=== PATIENT | male | born 1960 | race Hispanic/Latino ===

== ENCOUNTER 2016-07-02 11:41 | Emergency (ER) | payer OTHER ==
[~2016-07-02] VITALS: Ht 160 cm; Wt 77.1 kg
[~2016-07-02 11:41] MED LIST: ALBUTEROL0.09 MG/A1 INH; AMOXICILLIN875 MG PO; AUGMENTIN 875 M1 TAB PO; BACTRIM DS 8001 TAB PO; FLEXERIL10 MG PO; IBUPROFEN800 MG PO; KEFLEX500 MG PO; LOTRIMIN CR1 %/45 GM TOP; MOTRIN600 MG PO; MOTRIN800 MG PO; NAPROSYN 500 M500 MG PO; NORCO 325 MG-51 TAB PO; NORFLEX100 MG PO; ROBITUSSIN W/CO10 ML PO; TESSALON PERLE100 MG PO; TRAMADOL50 MG PO; VOLTAREN75 MG PO; ZITHROMAX Z-PA250 M1 PO
--- NOTE | 2016-07-02 11:53 | ED CARDIAC/CP/PALPITATIONS ---
History of Present Illness General Chief Complaint: Chest Pain Stated Complaint: C/P Source: patient, old records Exam Limitations: no limitations Vital Signs & Intake/Output Vital Signs & Intake/Output Vital Signs Date Time Temp Pulse Resp B/P Pulse O2 O2 Flow FiO2 Ox Delivery Rate 07/02 1604 96.8 54 20 102/76 98 Room Air 07/02 1414 97.4 56 18 113/73 99 Room Air 07/02 1224 98 Room Air 07/02 1152 98.1 66 20 112/75 98 Room Air Allergies Coded Allergies: NO KNOWN ALLERGIES (07/02/16) Reconcile Medications No Known Home Medications Triage Nurses Notes Reviewed? yes Onset: Abrupt Duration: waxing and waning Timing: multiple episodes today Quality/Severity: moderate, sharp Location: central Activities at Onset: none Aspirin Today: no aspirin today Associated Symptoms: anxiety, dyspnea HPI: This is a 56 year old male who presents to the ER with chest pain that started yesterday. Pain is moderate to severe in intensity when it starts. Pain free at this time. No sweating but some associated shortness of breath. No history of previous NH or CAD. Past History Travel History Traveled to [place] past 21 day No Medical History Any Pertinent Medical History? 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 Yes Review of Systems Review of Systems Constitutional: Denies: chills, fever. EENTM: Reports: no symptoms. Respiratory: Reports: short of breath. Denies: cough, sputum production. Cardiovascular: Reports: chest pain. Denies: palpitations. GI: Denies: abdominal pain, nausea, vomiting. Genitourinary: Reports: no symptoms. Musculoskeletal: Reports: no symptoms. Skin: Reports: no symptoms. Neurological/Psychological: Reports: no symptoms. Hematologic/Endocrine: Denies: bruising, bleeding, polyuria, polydipsia. Immunologic/Allergic: Denies: splenectomy. All Other Systems: Reviewed and Negative Physical Exam Physical Exam General Appearance: well developed/nourished, alert, awake, anxious, mild distress Head: atraumatic, normal appearance Eyes: Bilateral: normal appearance, PERRL, pale conjunctivae. Ears, Nose, Throat: normal pharynx, normal ENT inspection, hearing grossly normal Neck: normal inspection, supple, full range of motion Respiratory: normal breath sounds, chest non-tender, no respiratory distress Cardiovascular: regular rate/rhythm Peripheral Pulses: 2+ radial (R), 2+ radial (L) Gastrointestinal: normal bowel sounds, soft, non-tender Extremities: normal inspection, normal capillary refill, normal range of motion, no edema Neurologic/Psych: no motor/sensory deficits, awake, alert, oriented x 3 Skin: intact, normal color, warm/dry Core Measures ACS in differential dx? Yes ASA ordered for poss ACS? Yes-ordered Severe Sepsis Present: No Septic Shock Present: No Progress Differential Diagnosis: AMI, aortic dissection, atrial fibrillation, musculoskeletal pain, myocarditis, pancreatitis, pericarditis, pneumonia, pneumothorax, pulmonary embolism, PUD/GERD Plan of Care: Orders Procedure Date/time Status Heart Healthy Diet 07/02 D Active TROPONIN LEVEL 07/02 1600 Complete EKG 07/02 1600 Active Telemetry/Parachute Marker 07/02 1208 Active TROPONIN LEVEL 07/02 1208 Complete COMPREHENSIVE METABOLIC PANEL 07/02 1208 Complete CBC WITHOUT DIFFERENTIAL 07/02 1208 Complete EKG 07/02 1143 Active Laboratory Tests 07/02/16 1555: Troponin I < 0.01 07/02/16 1220: Anion Gap 13, Estimated GFR > 60, BUN/Creatinine Ratio 17.8, Glucose 87, Calcium 9.3, Total Bilirubin 0.8, AST 20, ALT 31, Alkaline Phosphatase 70, Troponin I < 0.01, Total Protein 7.2, Albumin 4.3, Globulin 2.9, Albumin/Globulin Ratio 1.5, CBC w Diff NO MAN DIFF REQ, RBC 4.47 L, MCV 88.8, MCH 30.1, RDW 14.0, MPV 7.0 L, Gran % 53.5, Lymphocytes % 35.5, Monocytes % 8.2, Eosinophils % 2.2, Basophils % 0.6, Absolute Granulocytes 2.5, Absolute Lymphocytes 1.7, Absolute Monocytes 0.4, Absolute Eosinophils 0.1, Absolute Basophils 0, PUBS MCHC 33.9 07/02/16 1210: Lipase Cancelled Diagnostic Imaging: Viewed by Me: Radiology Read. Discussed w/RAD: Radiology Read. Initial ED EKG: NSR, ST ELEVATION/EARLY REPOLARIZATION PATTERN Prior EKG: unchanged Rhythm Strip: normal sinus rhythm Departure Departure Time of Disposition: 1710 Disposition: HOME OR SELF CARE Condition: Stable Clinical Impression Primary Impression: Chest pain Referrals: ARVIND MALAGON APRN (PCP/Family) CAITY BRODERICK,SUSSY Burnette Additional Instructions: Follow-up with your doctor in the office and with a therapeutic specialist listed. Return to the ER for any changing or worsening symptoms. Departure Forms: Customer Survey General Discharge Information Prescriptions: Current Visit Scripts No Known Home Medications Critical Care Note Critical Care Note Critical Care Time: non-applicable
[2016-07-02 12:32] LABS: ABSOLUTE BASOPHIL COUNT 0 /CUMM (0.0-0.2); ABSOLUTE EOSINOPHIL COUNT 0.1 /CUMM (0.0-0.7); ABSOLUTE GRANULOCYTE CT 2.5 /CUMM (1.4-6.5); ABSOLUTE LYMPH COUNT 1.7 /CUMM (1.2-3.4); ABSOLUTE MONOCYTE COUNT 0.4 /CUMM (0.10-0.60); BASOPHIL % 0.6 % (0.0-2.0); EOSINOPHIL % 2.2 % (0-5); GRANULOCYTE % 53.5 % (42.2-75.2); HEMATOCRIT 39.7 % (42-52); MEAN CORPUSCULAR HGB 30.1 PG (27.0-31.0); MEAN CORPUSCULAR HGB CONC 33.9 G/DL (33.0-37.0); MEAN CORPUSCULAR VOLUME 88.8 FL (80.0-94.0); PLATELET COUNT 234 /CUMM (130-400); RED BLOOD CELL CT 4.47 /CUMM (4.70-6.10); WHITE BLOOD CELL COUNT 4.7 /CUMM (4.8-10.8)
--- NOTE | 2016-07-02 13:34 | RADIOLOGY REPORT ---
EXAMINATION: XR CHEST CLINICAL INFORMATION: Chest pain. COMPARISON: 04/11/2015 TECHNIQUE: PA and lateral views of the chest were obtained. FINDINGS: The cardiomediastinal silhouette is stable. Peribronchial thickening, most prominent in the perihilar region is overall similar to the prior exam. There is no focal consolidation, pleural effusion or pneumothorax. Osseous structures are unremarkable. IMPRESSION: No acute cardiopulmonary process. Similar peribronchial thickening may be related to chronic bronchitis.
[2016-07-02 17:27] VITALS: BP 110/70
== END 2016-07-02 17:28 ==
LOC: ERH 11:41
PROVIDERS: Emergency Medicine
DX: R07.9 Chest pain, unspecified (principal)
CPT/HCPCS: 93005; 93010

== ENCOUNTER 2016-09-06 10:18 | Emergency (ER) | payer OTHER ==
[~2016-09-06] VITALS: Ht 165.1 cm; Wt 72.6 kg
--- NOTE | 2016-09-06 11:15 | ED GI/GU/ABDOMINAL COMPLAINT ---
History of Present Illness General Chief Complaint: General Adult Stated Complaint: PT STATES "I SEE BLD WHEN I WIPE' Source: patient Exam Limitations: no limitations Vital Signs & Intake/Output Vital Signs & Intake/Output Vital Signs Date Time Temp Pulse Resp B/P Pulse O2 O2 Flow FiO2 Ox Delivery Rate 09/06 1247 98.3 69 16 124/74 100 Room Air 09/06 1244 99 Room Air 09/06 1022 97.1 66 18 126/78 98 Room Air Allergies Coded Allergies: NO KNOWN ALLERGIES (07/02/16) Reconcile Medications Ondansetron HCl (Zofran) 4 MG TABLET 1 TAB PO Q6-8P PRN NAUSEA Triage Note: PT STATES THAT HE HAS HISTORY OF HEMROIDS AND CHRONIC BACK PROBLEMS, PT WAS SUPOSSED TO HAE PROCEDURE AT [facility] YESTERDAY FOR HIS BACK , BUT DID NOT GO DUE TO HE NOTED A SMALL AMOUNT OF BLOOD ON TOILET PAPER AFTER HE HAD A BM YESTERDAY. PT COMPLAINS OF FEELING NERVOUS Triage Nurses Notes Reviewed? yes Onset: Abrupt Duration: constant Timing: recent history Quality/Severity: moderate Severity Numbers: 5 Location: periumbilical Activities at Onset: none HPI: Patient is a 64-year-old male with a past medical history of chronic back pain states that yesterday he was at [facility] to have a procedure on his back however patient cannot specify exactly what this procedure was in which he identified to the staff that he had bright red blood after wiping after bowel movements which she was advised to present to the primary care doctor for further evaluation treatment and the procedure was not performed. Patient states that he tried to be evaluated by his primary care doctor however no point and was made in which patient presented the emergency room per the PCPs advice. Patient states that he had a colonoscopy performed remotely however he is unsure of specific findings. Patient does complain of a 2 day history as well as denies back pain periumbilical pain and mild nausea however patient can tolerate by mouth. Patient does state that he has had intermittent episodes of nausea as well the last 2 days. Denies any significant alcohol use however per pharmacology reconciliation he has been prescribed meloxicam recently He also admits to having difficulty and excessive force while moving his bowels Past History Travel History Traveled to [place] past 21 day No Medical History Any Pertinent Medical History? 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 No Review of Systems Review of Systems Constitutional: Reports: no symptoms. EENTM: Reports: no symptoms. Respiratory: Reports: no symptoms. Cardiovascular: Reports: no symptoms. GI: Reports: see HPI, abdominal pain. Genitourinary: Reports: no symptoms. Musculoskeletal: Reports: no symptoms. Skin: Reports: no symptoms. Neurological/Psychological: Reports: no symptoms. Hematologic/Endocrine: Reports: no symptoms. Immunologic/Allergic: Reports: no symptoms. All Other Systems: Reviewed and Negative Physical Exam Physical Exam General Appearance: no apparent distress, alert Gastrointestinal: normal bowel sounds, soft, GENERALIZED POINT TENDERNESS NOTED Rectal: RECTAL TONE INTACT SCANT BRIGHT RED BLOOD NOTED AFTER DIGITAL RECTAL EXAM nO SURROUNDING PERIRECTAL ABSCESS SWELLING OR TENDERNESS OR ERYTHEMA Comments: Well-developed well-nourished person in no acute distress HEENT: Normal EENT exam, extraocular motion intact, no nystagmus. Pupils equally round and reactive to light and accommodation. Nose is atraumatic. External auditory canal and Tympanic membranes clear. Pharynx normal. No swelling or edema. Neck: Supple, no lymphadenopathy, normal range of motion without pain or tenderness Back: Normal inspection generalized point tenderness noted Cardiovascular: Regular rate and rhythms no murmurs rubs or gallops, normal JVP Respiratory: Chest nontender. No respiratory distress.breath sounds clear to auscultation bilaterally Extremity: No edema, no calf tenderness to palpation, normal and equal pulses. Neuro: Alert oriented x3, motor sensory normal, cranial nerves II through XII grossly intact. Skin: No appreciable rash on exposed skin, skin is warm and dry. Psych: Mood and affect is normal, memory and judgment is normal. Core Measures ACS in differential dx? No Severe Sepsis Present: No Septic Shock Present: No Progress Differential Diagnosis: AAA, AMI, appendicitis, biliary colic, bowel obstruction , colon cancer, cholecystitis, diverticulitis, epididymitis, esophageal varices, gastritis, hepatitis, hernia, hemorrhoids, ischemic bowel, inflamm bowel dis, Irene-Genie tear, orchitis, pancreatitis, prostatitis, peptic ulcer, PUD/GERD, perforated viscous, pyelonephritis, SBO, STD, testicular torsion, ureterolithiasis, urinary retention, urethritis, UTI/pyelo Plan of Care: Orders Procedure Date/time Status PARTIAL THROMBOPLASTIN TIME 09/06 111 Complete PROTHROMBIN TIME 09/06 111 Complete LIPASE 09/06 111 Complete COMPREHENSIVE METABOLIC PANEL 09/06 111 Complete CBC WITHOUT DIFFERENTIAL 09/06 1116 Complete AMYLASE 09/06 111 Complete Laboratory Tests 09/06/16 1135: Anion Gap 9, Estimated GFR > 60, BUN/Creatinine Ratio 20.0, Glucose 82, Calcium 9.5, Total Bilirubin 1.2, AST 20, ALT 29, Alkaline Phosphatase 73, Total Protein 6.9, Albumin 4.1, Globulin 2.8, Albumin/Globulin Ratio 1.5, Amylase 37, Lipase 35, PT 11.8, INR 1.13, APTT 41 H, CBC w Diff NO MAN DIFF REQ, RBC 4.31 L, MCV 89.4, MCH 29.9, RDW 13.9, MPV 7.0 L, Gran % 49.3, Lymphocytes % 38.7, Monocytes % 8.3, Eosinophils % 2.9, Basophils % 0.8, Absolute Granulocytes 2.1, Absolute Lymphocytes 1.6, Absolute Monocytes 0.4, Absolute Eosinophils 0.1, Absolute Basophils 0, PUBS MCHC 33.4 Patient currently is resting comfortably on his bed no active bleeding noted at this time. Normotensive. Afebrile Patient had unremarkable blood work no signs of anemia no signs of acute blood loss no active bleeding unremarkable CT scan Nursing staff state that patient was reevaluated and states that he "just wants to take a nap" Patient was strongly advised to follow up with GI Patient was able tolerate by mouth on discharge (JANETH MANE,MARTINEZ) Diagnostic Imaging: Viewed by Me: CT Scan. Radiology Impression: no acute abnormality, no fracture Initial ED EKG: none Comments: PATIENT: ANGELIQUE ECHEVERRIA PRESENT AGE: 56 PATIENT ACCOUNT NO: [id number] : 58 LOCATION: [facility] ORDERING PHYSICIAN: MARTINEZ MANE SERVICE DATE: 09/06/16 EXAM TYPE: CAT - CT ABD & PELVIS W/O IV CONTRAS EXAMINATION: CT ABDOMEN AND PELVIS WITHOUT CONTRAST CLINICAL INFORMATION: Abdomen pain. Rectal bleeding COMPARISON: None TECHNIQUE: Multidetector volumetric imaging was performed from the superior aspect of the liver through the pubic symphysis. Sagittal and coronal reformatted images were obtained on the technologist's workstation. DLP: 339 mGy-cm FINDINGS: LUNG BASES: No suspicious abnormality. There are some scattered subpleural reticular opacities in the dependent lung bases. This could represent some atelectasis or fibrosis. LIVER, GALLBLADDER, AND BILIARY TREE: The liver contour is smooth. The liver is not enlarged. There is no suspicious focal liver lesion demonstrated on this nonenhanced exam. There is no definite calcified gallstone. There is no biliary dilation. PANCREAS: No suspicious abnormality SPLEEN: The spleen is not enlarged. No focal abnormality ADRENAL GLANDS: Within normal limits KIDNEYS AND URETERS: There is no renal calculus. There is no dilation of the urinary collecting system on either side. There is no renal mass. BLADDER: The bladder is not well-distended. No focal abnormality. GASTROINTESTINAL TRACT: There are some distal colonic diverticula. There is no localized pericolonic stranding. The appendix is normal. There is no small bowel dilation. No suspicious abnormality in the stomach. ABDOMINAL WALL: No significant hernia is appreciated. LYMPH NODES: There are no enlarged abdominal or pelvic lymph nodes. There is no free intraperitoneal fluid. VASCULAR: There is no abdominal aortic aneurysm. There is no obvious upper abdominal varices. PELVIC VISCERA: No suspicious abnormality OSSEOUS STRUCTURES: No suspicious focal lesion. There is irregularity of the endplates in the lower spine with vacuum phenomena and osteophyte formation. This may be degenerative. IMPRESSION: No acute abnormality. No etiology for rectal bleeding demonstrated No convincing evidence of portal hypertension or chronic liver disease The study was performed without IV contrast Departure Departure Disposition: HOME OR SELF CARE Condition: Stable Clinical Impression Primary Impression: Rectal bleed Secondary Impressions: Abdominal pain, Chronic low back pain Referrals: LOTUS BRODERICK,ARVIND GROSS APRN (PCP/Family) Additional Instructions: As discussed continue home medications as directed. Begin [id number] stool softener DOCULSATE for improvement of YOUR bowel movements. If symptoms worsen return to emergency room. On Friday please follow up and establish gastrin draw this Dr. GAUTAM for further evaluation treatment. Follow-up with your surgeon and your primary care doctor on Friday Begin the prescription of Zofran for future nausea PRESCRIPTION IS WAITING AT [facility] Departure Forms: Customer Survey General Discharge Information Prescriptions: Current Visit Scripts Ondansetron HCl (Zofran) 1 TAB PO Q6-8P PRN NAUSEA #15 TAB
[2016-09-06 11:49] LABS: ABSOLUTE BASOPHIL COUNT 0 /CUMM (0.0-0.2); ABSOLUTE EOSINOPHIL COUNT 0.1 /CUMM (0.0-0.7); ABSOLUTE GRANULOCYTE CT 2.1 /CUMM (1.4-6.5); ABSOLUTE LYMPH COUNT 1.6 /CUMM (1.2-3.4); ABSOLUTE MONOCYTE COUNT 0.4 /CUMM (0.10-0.60); BASOPHIL % 0.8 % (0.0-2.0); EOSINOPHIL % 2.9 % (0-5); GRANULOCYTE % 49.3 % (42.2-75.2); HEMATOCRIT 38.6 % (42-52); MEAN CORPUSCULAR HGB 29.9 PG (27.0-31.0); MEAN CORPUSCULAR HGB CONC 33.4 G/DL (33.0-37.0); MEAN CORPUSCULAR VOLUME 89.4 FL (80.0-94.0); PLATELET COUNT 211 /CUMM (130-400); RBC DISTRIBUTION WIDTH 13.9 % (11.5-14.5); RED BLOOD CELL CT 4.31 /CUMM (4.70-6.10); WHITE BLOOD CELL COUNT 4.3 /CUMM (4.8-10.8)
--- NOTE | 2016-09-06 11:51 | CT SCAN REPORT ---
EXAMINATION: CT ABDOMEN AND PELVIS WITHOUT CONTRAST CLINICAL INFORMATION: Abdomen pain. Rectal bleeding COMPARISON: None TECHNIQUE: Multidetector volumetric imaging was performed from the superior aspect of the liver through the pubic symphysis. Sagittal and coronal reformatted images were obtained on the technologist's workstation. DLP: 339 mGy-cm FINDINGS: LUNG BASES: No suspicious abnormality. There are some scattered subpleural reticular opacities in the dependent lung bases. This could represent some atelectasis or fibrosis. LIVER, GALLBLADDER, AND BILIARY TREE: The liver contour is smooth. The liver is not enlarged. There is no suspicious focal liver lesion demonstrated on this nonenhanced exam. There is no definite calcified gallstone. There is no biliary dilation. PANCREAS: No suspicious abnormality SPLEEN: The spleen is not enlarged. No focal abnormality ADRENAL GLANDS: Within normal limits KIDNEYS AND URETERS: There is no renal calculus. There is no dilation of the urinary collecting system on either side. There is no renal mass. BLADDER: The bladder is not well-distended. No focal abnormality. GASTROINTESTINAL TRACT: There are some distal colonic diverticula. There is no localized pericolonic stranding. The appendix is normal. There is no small bowel dilation. No suspicious abnormality in the stomach. ABDOMINAL WALL: No significant hernia is appreciated. LYMPH NODES: There are no enlarged abdominal or pelvic lymph nodes. There is no free intraperitoneal fluid. VASCULAR: There is no abdominal aortic aneurysm. There is no obvious upper abdominal varices. PELVIC VISCERA: No suspicious abnormality OSSEOUS STRUCTURES: No suspicious focal lesion. There is irregularity of the endplates in the lower spine with vacuum phenomena and osteophyte formation. This may be degenerative. IMPRESSION: No acute abnormality. No etiology for rectal bleeding demonstrated No convincing evidence of portal hypertension or chronic liver disease The study was performed without IV contrast
[2016-09-06] MEDS ORDERED: ZOFRAN4 M2 PO (12:01)
[2016-09-06 12:05] LABS: PT 11.8 SEC (9.4-12.5); PTT 41 SEC (25-37)
[2016-09-06 12:47] VITALS: BP 124/74
== END 2016-09-06 12:59 ==
LOC: ERH 10:18
PROVIDERS: Physician Assistant
DX: K62.5 Hemorrhage of anus and rectum (principal); G89.29 Other chronic pain; M54.5 Low back pain; R10.84 Generalized abdominal pain
CPT/HCPCS: 74176; J3101

== ENCOUNTER 2017-09-08 16:00 | Emergency (ER) | payer OTHER ==
[~2017-09-08] VITALS: Ht 165.1 cm; Wt 75.3 kg
[~2017-09-08 16:00] MED LIST changes: +KEFLEX500 M1 PO; +ZOFRAN4 M2 PO
[2017-09-08 17:59] VITALS: BP 112/78
--- NOTE | 2017-09-08 18:46 | ED ANIMAL BITE/WOUND CHECK ---
History of Present Illness General Chief Complaint: Suture Removal/Wound Recheck Stated Complaint: WOUND CHECK Source: patient, old records Exam Limitations: no limitations Vital Signs & Intake/Output Vital Signs & Intake/Output Vital Signs Date Time Temp Pulse Resp B/P B/P Pulse O2 O2 Flow FiO2 Mean Ox Delivery Rate 09/08 1759 97.5 83 18 112/78 97 Room Air 09/08 1618 98.4 80 20 109/73 98 Room Air ED Intake and Output 09/09 0000 09/08 1200 Intake Total Output Total Balance Patient 166 lb Weight Weight Reported by Patient Measurement Method Allergies Coded Allergies: No Known Allergies (09/08/17) Reconcile Medications Cephalexin (Keflex) 500 MG CAPSULE 1 CAP PO TID INFECTION Triage Note: TRIAGE: PT TO ER FOR WOUND RECHECK. HAS WOUND TO L INDEX FINGER S/P INJURY WITH BLEACH ON FRIDAY OR FRIDAY AND WAS SEEN HERE ON FRIDAY FOR SAME. STATES "SHE POPPED IT, SQUEEZED IT OUT, PUT OINTMENT AND A BIG BANDAID". WAS TOLD TO RETURN TODAY FOR RECHECK. HAS DRESSING IN PLACE AT TRIAGE, WOUND NOT VISUALIZED. Triage Nurses Notes Reviewed? yes Onset: Abrupt Duration: day(s): (5), better, continues in ED Timing: single episode today Injury Environment: home Is Injury an Animal Bite? No Severity: mild, moderate Severity Numbers: 5 No Modifying Factors: none HPI: 57-year-old male past medical history of chronic back pain, anxiety presents for evaluation of a wound recheck. Patient was seen here several days ago for an infection to his left index finger. Patient sustained a wound while cleaning a bathroom. He was started on antibiotics. He had a abscess drained several days ago. He states that the swelling and redness has improved significantly seen playing with the pain. He's been changing the dressing daily and take the antibiotics as directed. No numbness or tingling or fever. He does report some purulent discharge. (Pedro Montalvo) Past History Travel History Traveled to [place] past 21 day No Medical History Any Pertinent Medical History? 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 No (Pedro Montalvo) Review of Systems Review of Systems Constitutional: Reports: no symptoms. EENTM: Reports: no symptoms. Respiratory: Reports: no symptoms. Cardiovascular: Reports: no symptoms. GI: Reports: no symptoms. Genitourinary: Reports: no symptoms. Musculoskeletal: Reports: no symptoms. Skin: Reports: see HPI. Neurological/Psychological: Reports: no symptoms. Hematologic/Endocrine: Reports: no symptoms. Immunologic/Allergic: Reports: no symptoms. All Other Systems: Reviewed and Negative (Pedro Montalvo) Physical Exam Physical Exam General Appearance: well developed/nourished, no apparent distress, alert, awake Head: atraumatic, normal appearance Eyes: Bilateral: normal appearance, EOMI. Ears, Nose, Throat: hearing grossly normal Neck: normal inspection Respiratory: no respiratory distress Peripheral Pulses: 2+ radial (R), 2+ radial (L) Back: normal inspection, normal range of motion Extremities: LEFT INDEX FINGER. tHERE IS A AREA OF ERYTHEMA AND SWELLING ON THE PROXIMAL SEGMENT OF THE DORSAL SIDE. tHERE IS SOME PURULENT DISCHARGE. nO LYMPHATIC STREAKING FULL RANGE OF MOTION OF THE FINGER IS INTACT NEUROVASCULAR SUPPLY INTACT Neurologic/Psych: no motor/sensory deficits, awake, alert, oriented x 3, normal gait, normal mood/affect Skin: intact, normal color, warm/dry (Pedro Montalvo) Progress Differential Diagnosis: abscess, cellulitis, joint infection, tenosysnovitis Plan of Care: Patient seen and evaluated. The wound appears to be healing well. Some purulent discharge was expressed from the abscess pocket. There is no lymphatic streaking patient is afebrile he appears well. He's been taking cephalexin as directed. Culture and sensitivity still pending. The wound was cleaned and a new dressing was placed. Advised patient to continue warm compresses Tylenol Advil for pain continue antibiotics will follow up on culture. Discussed return precautions in detail. Another wound check should be done in a few days sooner if needed. he appears well he agrees. (Pedro Montalvo) Departure Departure Disposition: HOME OR SELF CARE Condition: Stable Clinical Impression Primary Impression: Abscess re-check Referrals: Augusto Pelletier APRN (PCP/Family) Additional Instructions: Continue antibiotics as directed for the full course. Change dressing once daily. Apply warm compresses for 15-20 minutes every few hours. Monitor for signs of worsening infection-like worsening swelling pain spreading redness fever or any other concerns. Make a follow-up appointment with her primary care doctor or return to the emergency Department in another 3 days for another check. Return sooner with any concerns. Departure Forms: Customer Survey General Discharge Information (Pedro Montalvo) PA/WEAVING PROFESSOR Co-Sign Statement Statement: ED Attending supervision documentation- I saw and evaluated the patient. I have also reviewed all the pertinent lab results and diagnostic results. I agree with the findings and the plan of care as documented in the PA's/WEAVING PROFESSOR's documentation. x I have reviewed the ED Record and agree with the PA's/WEAVING PROFESSOR's documentation. [] Additions or exceptions (if any) to the PAs/WEAVING PROFESSOR's note and plan are summarized below: [] (Jack BRODERICK,Flakito)
[2017-09-13] MEDS ORDERED: CYCLOBENZAPRINE10 M1 PO (01:46)
[2017-09-14] MEDS ORDERED: CHERATUSSIN AC118 M1 PO (22:45)
[2017-09-14] MEDS ORDERED: PREDNISONE50 M1 PO (22:45)
[2017-09-14] MEDS ORDERED: DOXYCYCLINE HY100 M4 PO (22:45)
[2017-09-14] MEDS ORDERED: PROAIR HFA8.5 GM INH (22:46)
== END 2017-09-08 18:58 ==
LOC: ERH 16:00
DX: Z48.00 Encounter for change or removal of nonsurgical wound dressing (principal)